=== PATIENT | female | born 1940 | race Caucasian/White ===

== ENCOUNTER 2022-01-27 10:45 | Inpatient (IN) | payer MEDICARE, OTHER ==
[~2022-01-27] VITALS: Ht 152.4 cm; Wt 65.8 kg
[2022-01-27] MEDS ORDERED: IV NORMAL SALINE 500 ML BAG IV ONE (11:15)
--- NOTE | 2022-01-27 11:30 | NUR ---
Patient brought in to ED by daughter via wheelchair. Patient had hip surgery on right side on 12/19/21 at [facility]. She was discharged to a SNF for 4 weeks post surgery. She has been at home for a week now. Complaints include right shoulder pain, left leg pain, no bowel movement for 1 week, and no appetite. Home health nurse suggested to the daughter to bring the patient to be seen in ER.
--- NOTE | 2022-01-27 11:35 | NUR ---
Dr. Jacobs on bedside for MSE.
--- NOTE | 2022-01-27 11:56 | NUR ---
[facility] panel call placed, spoke to Silva , she stated she will get a hold of TABBY Mckeon for admitting.
[2022-01-27 11:57] LABS: *BILIRUBIN,URIN NEGATIVE (NEGATIVE); *BLOOD, URINE NEGATIVE (NEGATIVE); *CLARITY,URINE CLOUDY (CLEAR); *COLOR,URINE YELLOW (YELLOW); *KETONES,URINE NEGATIVE (NEGATIVE); *UROBILINOGEN,URINE 0.2 E.U./dl (NORMAL); LEUKOCYTE ESTERASE ,URINE TRACE (NEGATIVE); NITRITE, URINE POSITIVE (NEGATIVE); PH,URINE 5.5 (5.0-8.0); UGLUCOSE NEGATIVE (NEGATIVE)
[2022-01-27 12:02] LABS: HEMATOCRIT 40.4 % (31.2-41.9); MEAN CORPUSCULAR HEMOGLOBIN 29.7 uug (24.7-32.8); MEAN CORPUSCULAR VOLUME 91.3 fL (75.5-95.3); PLATELET COUNT (AUTO) 147 K/uL (179-408)
[2022-01-27 12:03] LABS: CARBON DIOXIDE 26 mmol/L (21-32); CHLORIDE 108 mmol/L (98-107); CREATININE 0.8 mg/dL (0.6-1.3); GLUCOSE 109 mg/dL (74-106); POTASSIUM 3.8 mmol/L (3.5-5.1); UREA NITROGEN, BLOOD 16 mg/dL (7-18)
--- NOTE | 2022-01-27 12:04 | NUR ---
Dr. Jacobs on panel call with NOEL Mckeon. Patient accepted for admission to [facility] unit. Dx gen weakness and UTI.
[2022-01-27 12:11] LABS: ALANINE AMINOTRANSFERASE 21 U/L (14-59); ALKALINE PHOSPHATASE 141 U/L (50-136); ASPARTATE AMINOTRANSFERASE 30 U/L (15-37); BILIRUBIN,DIRECT 0.1 mg/dL (0.0-0.2); BILIRUBIN,TOTAL 0.4 mg/dL (0.2-1.0); TOTAL PROTEIN, SERUM 7.7 g/dL (6.4-8.2)
[2022-01-27] MEDS ORDERED: CEFTRIAXONE 1 G in IV DEXTROSE 5% 50 ML IV ONE (12:15)
[2022-01-27 12:22] LABS: BACTERIA,URINE MANY /HPF (NONE SEEN); RBC,URINE NONE SEEN /HPF (0-3); SQUAMOUS EPITHELIAL CELL,UR MODERATE /HPF (NONE SEEN); WBC,URINE 0-3 /HPF (0-3)
[2022-01-27] MEDS ORDERED: CEFTRIAXONE /D5W 50ML IVPB **ER PYXIS IV ONE (12:24)
[2022-01-27] MEDS ORDERED: ASPIRIN 81 MG TAB.CHEW PO ONE (12:45)
[2022-01-27] MEDS ORDERED: ASPIRIN 81 MG TAB.CHEW ONE (12:50)
[2022-01-27] MEDS ORDERED: ONDANSETRON 4 MG/2 ML VIAL IV PRN (14:00)
[2022-01-27] MEDS ORDERED: MAGNESIUM HYDROXIDE 30 ML LIQUID UDC PO PRN (14:00)
[2022-01-27] MEDS ORDERED: HYDROCODONE/APAP 5-325MG TABLET PO PRN (14:00)
[2022-01-27] MEDS ORDERED: REMEDY ESSENTIAL ZINC PASTE 113 GM TP PRN (14:00)
[2022-01-27] MEDS ORDERED: TRAMADOL HCL 50 MG TABLET PO PRN (14:30)
--- NOTE | 2022-01-27 15:03 | NUR ---
Noted patient BP as follow taken x3. 181/73, 2nd was 173/71, 3rd was 176/62. Informed [facility], awaiting for new order.
[2022-01-27] MEDS ORDERED: hydrALAZINE HCL 20 MG/1 ML VIAL ONE ×2 (15:11→19:10)
[2022-01-27] MEDS: hydrALAZINE HCL 20 MG/1 ML VIAL IV PRN ×2 (15:12→19:11)
[2022-01-27] MEDS ORDERED: TRAMADOL HCL 50 MG TABLET ONE (15:27)
--- NOTE | 2022-01-27 16:49 | NUR ---
Informed TABBY Mckeon current BP remains on the high 170's. BP 178/75. Pt asymptomatic, denies any headache or dizziness. TABBY Mckeon with placing new order for labetalol. Will carry out order.
[2022-01-27] MEDS ORDERED: LABETALOL HCL 100 MG/20 ML VIAL ONE (16:57)
[2022-01-27] MEDS ORDERED: LABETALOL HCL 100 MG/20 ML VIAL IV PRN (17:00)
[2022-01-27] MEDS ORDERED: SENNOSIDES 1 TABLET PO ONE (17:00)
[2022-01-27] MEDS ORDERED: DOCUSATE SODIUM 100 MG CAPSULE PO SCH (17:00)
[2022-01-27] MEDS ORDERED: DOCUSATE SODIUM 100 MG CAPSULE PO ONE (17:21)
[2022-01-27 19:11] VITALS: BP 174/73
--- NOTE | 2022-01-27 19:14 | NUR ---
[facility] panel call placed, will get a hold of Dr. Barbosa to transfer patient to [facility].
--- NOTE | 2022-01-27 19:18 | NUR ---
Dr. rGoves on panel call with Dr. Fonseca.
[2022-01-27] MEDS ORDERED: CLONIDINE HCL 0.1 MG TABLET PO PRN (20:15)
[2022-01-27] MEDS ORDERED: ENOXAPARIN SODIUM 40 MG/0.4 ML DISP.SYRIN SQ SCH (21:00)
--- NOTE | 2022-01-27 21:44 | NUR ---
Called Darrel for ACLS transport to [facility], eta [phone].
[2022-01-27] MEDS ORDERED: ENOXAPARIN SODIUM 40 MG/0.4 ML DISP.SYRIN SQ ONE (23:14)
--- NOTE | 2022-01-28 00:12 | NUR ---
Report given to Tish Steel, [facility].
[2022-01-28] MEDS ORDERED: PANTOPRAZOLE SODIUM 40 MG TABLET.DR PO SCH (07:00)
[2022-01-28] MEDS ORDERED: ASPIRIN EC 81 MG TABLET.DR PO SCH (09:00)
[2022-01-28] MEDS ORDERED: CEFTRIAXONE 1 G in IV DEXTROSE 5% 50 ML IV SCH (12:00)
== END 2022-01-28 09:24 | disposition short-term general hospital (02) | DRG 689 ==
LOC: ER 10:45 → TRANSITION 16:48
PROVIDERS: ADMIT Registered Nurse; ATTEND Registered Nurse
PROC: 05H633Z Insertion of Infusion Device into Left Subclavian Vein, Percutaneous Approach (ICD-10-PCS; principal; 2022-01-27)
PROC: B547ZZA Ultrasonography of Left Subclavian Vein, Guidance (ICD-10-PCS; 2022-01-27)
DX: N39.0 Urinary tract infection, site not specified (principal); I21.A1 Myocardial infarction type 2; E66.9 Obesity, unspecified; I50.9 Heart failure, unspecified; K59.00 Constipation, unspecified; M85.80 Other specified disorders of bone density and structure, unspecified site; Z96.641 Presence of right artificial hip joint; Z68.28 Body mass index [BMI] 28.0-28.9, adult; Z71.3 Dietary counseling and surveillance; R53.1 Weakness; I11.0 Hypertensive heart disease with heart failure; M16.12 Unilateral primary osteoarthritis, left hip; B96.89 Other specified bacterial agents as the cause of diseases classified elsewhere; Z20.822 Contact with and (suspected) exposure to COVID-19
CPT/HCPCS: 36415; 71045; 73030; 73521; 84484; 85025; 87086; 93005; 93307; A4663; G0378; J0360; J0696; J1650; J3490; J7040